=== PATIENT | male | born 1955 | race Caucasian/White ===

== ENCOUNTER 2017-01-08 07:07 | Inpatient (IN) | payer OTHER ==
--- NOTE | 2016-12-25 15:08 | DIAGNOSTIC IMAGING REPORT ---
CHEST 2 VIEWS ROUTINE CLINICAL HISTORY: Preoperative chest COMPARISON STUDY: No previous studies for comparison. FINDINGS: The cardiac and mediastinal contours are normal. There is no evidence of focal pulmonary consolidation. There is no evidence of failure. No pleural effusions are visualized.[ IMPRESSION: No active disease in the chest. Electronically signed by: Dudley Crespo M.D. 12/25/2016 3:05 PM Dictated Date/Time: 12/25/2016 3:04 PM
[2016-12-25 16:09] LABS: URINE APPEARANCE CLEAR (CLEAR); URINE BILIRUBIN NEG (NEG); URINE COLOR YELLOW; URINE NITRITE NEG (NEG); URINE SPECIFIC GRAVITY 1.015 (1.000-1.030); UROBILINOGEN NEG (NEG)
[2016-12-25 16:13] LABS: MANUAL MICROSCOPIC REQUIRED? NO; REVIEW REQ? NO
[2016-12-25 16:15] LABS: BASO % 0.2 %; BASO ABS # 0.01 K/uL (0-0.2); COMPLETE YES; EOS % 0.8 %; HEMATOCRIT 38.8 % (42-52); IG% 0.2 %; LYMPH % 15.8 %; LYMPH ABS # 0.95 K/uL (1.2-3.4); MEAN CELL VOLUME 102.6 fL (80-100); MEAN CORPUSCULAR HEMOGLOBIN 35.4 pg (25-34); MEAN CORPUSCULAR HGB CONC 34.5 g/dl (32-36); MONO % 5.3 %; NEUT % 77.7 %; PLATELET COUNT 109 K/uL (130-400); RED BLOOD COUNT 3.78 M/uL (4.7-6.1); WHITE BLOOD COUNT 6.02 K/uL (4.8-10.8)
[2016-12-25 17:15] LABS: BLOOD UREA NITROGEN 18 mg/dl (7-18); BUN/CREATININE RATIO 16.2 (10-20); CALCIUM 9.6 mg/dl (8.5-10.1); CARBON DIOXIDE 26 mmol/L (21-32); CHLORIDE 103 mmol/L (98-107); GLUCOSE 100 mg/dl (70-99); POTASSIUM 3.6 mmol/L (3.5-5.1); SODIUM 137 mmol/L (136-145)
[2016-12-27 10:21] VITALS: BMI 32.0
[~2017-01-08] VITALS: Ht 175.3 cm; Wt 100.0 kg
[2017-01-08] VITALS (8 sets, daily range): BP systolic 105–127; BP diastolic 64–79; PULSE 65–91; TEMP 36.4–36.9; O2SAT 97–100; Ht 175.3 cm; Wt 100.0 kg
[~2017-01-08 07:07] MED LIST: ASCA500 PO; CEFAZOLIN 2000 MG/60 ML D5W IV SCH; FOLI800T PO; FURO-85 PO; HYDR-4079 PO; L-ME1CAP3 PO; LACTATED RINGER'S 1000ML 1,000 ML IV SCH; LINE600T5 PO; LISI-787 PO; MULT-506 PO; NRN/600 PO; [UNRECOGNIZED DRUG - REMARK] SCH
[2017-01-08] MEDS ORDERED: FENTANYL CITRATE INJ 50 MCG/1 ML 2 ML VIAL ONE ×4 (09:57→12:51)
[2017-01-08] MEDS ORDERED: MIDAZOLAM HCL 1 MG/ML 2ML VIAL ONE (09:57)
--- NOTE | 2017-01-08 10:01 | History & Physical Bridge Note ---
H&P Re-Evaluation Bridge Note: I have examined the patient, reviewed the History & Physical and in the interval since the performance of the History & Physical I have noted the following changes of clinical significance: No changes noted
--- NOTE | 2017-01-08 10:02 | History and Physical ---
History & Physical Date January 08, 2017. History of Present Illness The patient is a 61 year old male with complaints of Past Medical/Surgical History back and leg pain Additional History Hepatic Disease: Yes Endocrine Disorder: No Kidney Disease: No Hypertension: No Heart Disease: Yes Bleeding Tendencies: No Infectious Diseases: No Allergies Coded Allergies: Penicillins (Verified Allergy, Mild, UNKNOWN, 12/27/16) Tramadol (Verified Allergy, Mild, LIP SWELLING, 12/27/16) Vancomycin (Verified Allergy, Mild, LIP SWELLING, 12/27/16) Home Medications Scheduled Ascorbic Acid (Vitamin C), 1 TAB PO QPM Folic Acid (Folic Acid), 1 TAB PO QAM Gabapentin (Neurontin), 600 MG PO TID L-Methylfolate W/ Algae-Vitami (Metanx), 1 CAP PO BID Linezolid (Zyvox), 600 MG PO Q12 Lisinopril/Hctz (Zestoretic 20MG/12.5MG), 2 TAB PO QAM Multivitamin (Multivitamin), 1 TAB PO QPM Scheduled PRN Furosemide (Lasix), 20 MG PO DAILY PRN for SWELLING Hydrocodone/Acetaminophen 10MG/325MG (Darrow 10MG/325MG), 1 TABS PO Q12 PRN for Pain Physical Examination Skin: warm/dry, no rash Eyes: normal inspection, EOMI, sclerae normal ENT: normal ENT inspection, pharynx normal Head: normocephalic, atraumatic Neck: supple, no adenopathy, trachea midline Respiratory/Chest: lungs clear, normal breath sounds, no respiratory distress Cardiovascular: regular rate, rhythm, no edema, no murmur Abdomen / GI: normal bowel sounds, non tender Back: normal inspection Extremities: normal inspection, normal range of motion Neurologic/Psych: no motor/sensory deficits, alert, normal reflexes, oriented x 3 Diagnosis lumbar stenosis Plan of Treatment decompression fusion L4-S1
[2017-01-08] MEDS ORDERED: CEFAZOLIN IV 2,000 MG/60 ML D5W IV ONE (10:25)
[2017-01-08] MEDS ORDERED: BACITRACIN 50000 UNIT VIAL ONE (10:26)
[2017-01-08] MEDS ORDERED: BUPIVACAINE/EPINEPHRINE 0.5% MPF 1:200,000 30 ML VIAL ONE (10:26)
[2017-01-08] MEDS ORDERED: SODIUM CHLORIDE 0.9% PF 50 ML VIAL ONE (10:26)
[2017-01-08] MEDS ORDERED: HYDROmorphone INJ 2 MG/ML SYR/VIAL ONE ×2 (11:06→12:58)
[2017-01-08] MEDS ORDERED: LABETALOL HCL IV 5 MG/ML 20ML IV PRN (11:30)
[2017-01-08] MEDS ORDERED: ATROPINE SULFATE 0.1 MG/ML 5ML SYR IV PRN (11:30)
[2017-01-08] MEDS ORDERED: MEPERIDINE HCL 25 MG/ML CARP IV PRN (11:30)
[2017-01-08] MEDS ORDERED: EpHEDrine SULFATE INJ 50 MG/ML AMP IV PRN (11:30)
[2017-01-08] MEDS ORDERED: ONDANSETRON INJ 2 MG/ML 2 ML VIAL IV PRN ×2 (11:30→13:00)
[2017-01-08] MEDS ORDERED: HYDROmorphone INJ 1 MG/ML SYR IV PRN (11:30)
[2017-01-08] MEDS ORDERED: ONDANSETRON INJ 2 MG/ML 2 ML VIAL ONE ×2 (11:46→13:00)
[2017-01-08] MEDS ORDERED: LIDOCAINE HCL 2% 2 ML VIAL (20MG/ML) ONE (11:46)
[2017-01-08] MEDS ORDERED: ROCURONIUM BROMIDE 10 MG/ML 5 ML VIAL ONE (11:46)
[2017-01-08] MEDS ORDERED: DEXAMETHASONE SOD INJ 4 MG/ML VIAL ONE (11:46)
[2017-01-08] MEDS ORDERED: PROPOFOL IV EMULSION 10 MG/ML 20 ML VIAL IV ONE (11:46)
[2017-01-08] MEDS ORDERED: FLOSEAL HEMOSTATIC MATRIX 10ML TOP ONE (12:44)
[2017-01-08] MEDS ORDERED: SODIUM CHLORIDE 0.9% 1000ML 1,000 ML IV SCH (12:49)
--- NOTE | 2017-01-08 12:49 | [facility] Post Operative Brief Note ---
Immediate Operative Summary Operative Date January 08, 2017. Pre-Operative Diagnosis Lumbar Stenosis, L4-S1 Post-Operative Diagnosis Same as preoperative Procedure(s) Performed decompression Surgeon Dr. Ciro Galindo Brazing Machine Operator Helper Surgeon(s) Elizabeth Canseco PA-C Estimated Blood Loss 300 Findings stenosis Specimens None per surgeon
[2017-01-08] MEDS ORDERED: PROMETHAZINE HCL INJ 12.5 MG in SODIUM CHLORIDE 0.9% 50ML 50 ML IV PRN (13:00)
[2017-01-08] MEDS ORDERED: DO NOT ADMINISTER PNEUMOCOCCAL VACCINE PRN ×2 (13:00)
[2017-01-08] MEDS ORDERED: ACETAMINOPHEN 500 MG TAB PO PRN (13:00)
[2017-01-08] MEDS ORDERED: DO NOT ADMINISTER FLU VACCINE PRN ×3 (13:00)
[2017-01-08] MEDS ORDERED: ALUMINUM/MAGNESIUM SUSP 30 ML UDC PO PRN (13:00)
[2017-01-08] MEDS ORDERED: FAMOTIDINE 20 MG TAB PO PRN (13:00)
[2017-01-08] MEDS ORDERED: GLYCOPYRROLATE INJ 0.2 MG/ML VIAL ONE (13:00)
[2017-01-08] MEDS ORDERED: LORAZEPAM INJ 0.5 MG in SYRINGE 0 ML IV PRN (13:00)
[2017-01-08] MEDS ORDERED: NALOXONE HCL 0.4 MG/1 ML VIAL/CARP IV PRN ×2 (13:00)
[2017-01-08] MEDS ORDERED: BISACODYL 10 MG SUPP PR PRN (13:00)
[2017-01-08] MEDS ORDERED: MAGNESIUM HYDROXIDE SUSP 30 ML UDC PO PRN (13:00)
[2017-01-08] MEDS ORDERED: METOCLOPRAMIDE HCL INJ 5 MG/ML 2 ML VIAL IV PRN (13:00)
[2017-01-08] MEDS ORDERED: NEOSTIGMINE METHYLSULFATE 1 MG/ML 10ML VIAL ONE (13:00)
[2017-01-08] MEDS ORDERED: hydrOXYzine HCL 25 MG TAB PO PRN (13:00)
[2017-01-08] MEDS ORDERED: ACETAMINOPHEN IV 100 ML IV PRN (13:00)
[2017-01-08] MEDS ORDERED: FUROSEMIDE 20 MG TAB PO PRN (13:00)
[2017-01-08] MEDS ORDERED: SOD PHOSPHATE/SOD BIPHOSPHATE ENEMA 132 ML BTL PR PRN (13:00)
[2017-01-08] MEDS ORDERED: HYDROmorphone HCL 0.5MG/ML 50 ML CASSETTE ONE (13:09)
[2017-01-08] MEDS: FENTANYL CITRATE INJ 50 MCG/1 ML 2 ML VIAL IV PRN ×4 (13:25→13:40)
--- NOTE | 2017-01-08 13:36 | DIAGNOSTIC IMAGING REPORT ---
INTRAOPERATIVE LUMBAR SPINE 2 VIEWS CLINICAL HISTORY: L4-S1 DECOMPRESSION/FUSION/INTERBODY POSSIBLE ILIAC BOLTS COMPARISON STUDY: No previous studies for comparison. FINDINGS: 24 seconds of fluoroscopic time was utilized. 2 intraoperative fluoroscopic spot films were acquired. There are postsurgical changes of an L5-S1 discectomy and interbody fusion. There are pedicle screws with adjoining spinal rods at the L4, L5, and S1 levels. IMPRESSION: Postsurgical changes as described above. Electronically signed by: Dudley Crespo M.D. 01/08/2017 1:35 PM Dictated Date/Time: 01/08/2017 1:34 PM
--- NOTE | 2017-01-08 14:01 | OPERATIVE REPORT ---
DATE OF OPERATION: 01/08/2017 PREOPERATIVE DIAGNOSIS: Spinal stenosis, spondylolisthesis. POSTOPERATIVE DIAGNOSIS: Same. PROCEDURE PERFORMED: 1. Lumbar decompression, medial facetectomy, and foraminotomy L3-4, L4-5, L5-S1. 2. Posterior spinal fusion L4-L5, L5-S1. 3. Placement of posterior segmental instrumentation using Orthros rods and screws L4-5, L5-S1. 4. Interbody fusion L5-S1. 5. Placement of PEEK cage 10 x 22 mm at L5-S1. 6. Placement of locally harvested morcellized autograft in posterior gutters. 7. Placement of Infuse collagen sponge combined with Mastergraft in the posterior gutters and Trang bone grafting in interbody space. SURGEON: Dr. Ciro Galindo. CAN PATCHER: VINCENT Huber. Due to the complex nature of the procedure, the entire surgery was performed with the assistant financial accountant of VINCENT Huber. The hospital nursing assistant, under direct supervision, was involved in the actual performance of all aspects of the surgical procedure including hemostasis, tissue retraction and incision, instrument management, patient positioning, and wound closure. ANESTHESIA: General. DISPOSITION: The patient awakened and taken to PACU in stable condition. HISTORY OF PATIENT'S PROBLEMS: This is a 61-year-old male well known to me, presents with the above-mentioned diagnosis. After failing an extensive course of nonoperative care, elected to undergo the above-mentioned procedure. Risks, benefits, pros, cons, and alternatives were outlined in detail preoperatively. DESCRIPTION OF PROCEDURE: The patient was met with preoperatively, case discussed, and all questions were addressed. At that point, the patient was taken back to the operative suite, and after undergoing successful general intubation by the department of anesthesia, was placed in prone position on Trevor table atop Robert frame. All bony prominences were well padded and the eyes were inspected to ensure there was no external pressure placed upon them. At this point, lumbar spine was prepped and draped in normal sterile fashion. Sharp dissection with the assistance of Bovie cautery was performed down to and exposing the lamina and transverse processes of L4, L5 and sacral ala bilaterally. From a caudal to cephalad fashion, complete laminectomy of L5, L4, partial laminectomy of L3 was performed including medial facetectomies and foraminotomies. Pedicle screws were then placed in L4, L5 and S1 levels bilaterally with assistance of fluoroscopy and appropriate size kristian provisionally placed. Through a transforaminal approach on the right, a complete discectomy of L5-S1 was performed, endplates curetted to subcortical bleeding bone, and a 10 x 22 mm PEEK cage filled with Trang bone grafting tapped into position. Appropriate size rods were then locked into position bilaterally and transverse processes of L4, L5 and sacral ala burred to subcortical bleeding bone. Infuse collagen sponge combined with Mastergraft and locally harvested morcellized autograft was placed in the posterior gutters. A crosslink locked into position, 7 flat LONNIE drain inserted. Incision was closed with 1-0 Vicryl in the fascia, 2-0 Vicryl subcutaneously, 4-0 Monocryl for final skin closure. Steri-Strips and sterile dressing placed. The patient was awakened and taken to PACU in stable condition. I attest to the content of the Intraoperative Record and any orders documented therein. Any exceptio ns are noted below.
[2017-01-08] MEDS: HYDROmorphone HCL 0.5MG/ML 50 ML CASSETTE IV PRN ×2 (14:16→22:57)
--- NOTE | 2017-01-08 14:20 | Anesthesiology Progress Note ---
Anesthesia Post Op Note Date & Time January 08, 2017 at 14:20 Vital Signs Pain Intensity: 4 Vital Signs Past 12 Hours Date Time Temp Pulse Resp B/P Pulse Ox O2 Delivery O2 Flow Rate FiO2 01/08/17 13:55 37.4 82 12 101/61 100 Nasal Cannula 4 01/08/17 13:45 84 12 113/60 99 Nasal Cannula 4 01/08/17 13:35 83 12 118/62 99 Nasal Cannula 4 01/08/17 13:25 82 12 122/61 100 Mask 10 01/08/17 13:15 92 12 123/73 100 Mask 10 01/08/17 13:09 36.7 95 12 138/68 99 Mask 10 01/08/17 07:35 36.9 91 16 126/79 99 Room Air Notes Mental Status: alert / awake / arousable, participated in evaluation Pt Amnestic to Procedure: Yes Nausea / Vomiting: adequately controlled Pain: adequately controlled Airway Patency, RR, SpO2: stable & adequate BP & HR: stable & adequate Hydration State: stable & adequate Anesthetic Complications: no major complications apparent
[2017-01-08] MEDS: LACTATED RINGER'S 1000ML 1,000 ML IV SCH ×2 (15:22→19:28)
[2017-01-08] MEDS: GABAPENTIN 600 MG TAB PO SCH (15:43)
[2017-01-08] MEDS: NICOTINE 21 MG/24 HR TDSY TD SCH (15:43)
[2017-01-08] MEDS ORDERED: LORAZEPAM 1 MG TAB PO SCH (18:00)
[2017-01-08] MEDS: CLINDAMYCIN IV 600 MG in DEXTROSE 5% ADD-VANTAGE 50ML 50 ML IV SCH (18:15)
[2017-01-08] MEDS: DEXAMETHASONE INJ 6 MG in SYRINGE 0 ML IV SCH (19:28)
[2017-01-08] MEDS ORDERED: LORAZEPAM 1 MG TAB PO PRN (20:00)
--- NOTE | 2017-01-08 20:11 | Medical Consult ---
Consultation Date of Consultation: January 08, 2017 ~ 17:50 . Attending Physician: Ciro Galindo D.O. . Reason for Consultation: medical management . History of Present Illness 61 YO male from [place], [place]. History of hypertension, diet-controlled DM, and other problems noted below. Lumbar decompression and fusion performed today under general anesthesia. Doing well postoperatively. No chest pain. No cough or dyspnea. No nausea or vomiting. Postop pain well-controlled. . Past Medical/Surgical History Chronic Medical Problems: (1) Diabetes mellitus type 2, diet controlled Status: Chronic (2) History of bladder cancer Status: Chronic (3) Hypertension Status: Chronic Surgical Problems: (1) History of total cystectomy Permanent Comment: bladder Ca Status: Chronic (2) Status post ileal conduit Status: Chronic . Social History Smoking Status: Current Every Day Smoker (1 PPD) Alcohol Use: heavy (8 drinks a day) Occupation Status: disabled Allergies Coded Allergies: Penicillins (Verified Allergy, Mild, UNKNOWN, 12/27/16) Tramadol (Verified Allergy, Mild, LIP SWELLING, 12/27/16) Vancomycin (Verified Allergy, Mild, LIP SWELLING, 12/27/16) Current Inpatient Medications Current Inpatient Medications Medications (Trade) Dose Ordered Sig/Harinder Route Start Time Stop Time Status Last Admin Dose Admin Lactated Ringer's 1,000 ml @ 15 mls/hr Q24H IV 01/08/17 06:00 01/09/17 05:59 Clindamycin Phosphate 600 mg/ Dextrose 54 ml @ 100 mls/hr Q8H IV 01/08/17 18:00 01/09/17 02:33 01/08/17 18:15 100 MLS/HR Dexamethasone Sodium Phosphate 6 mg/Syringe 1.5 ml @ 1 mls/min Q8H IV 01/08/17 20:00 01/09/17 12:02 01/08/17 19:28 1 MLS/MIN Promethazine HCl/ Sodium Chloride (Phenergan Inj/ Nss 50ml) 50.5 ml @ 202 mls/hr Q6H PRN IV 01/08/17 13:00 02/07/17 12:59 Ondansetron HCl (Zofran Inj) 4 mg Q6H PRN IV 01/08/17 13:00 02/07/17 12:59 Metoclopramide HCl (Reglan Inj) 10 mg Q6H PRN IV 01/08/17 13:00 02/07/17 12:59 Lorazepam 0.5 mg 0.5 mg Q8H PRN PO 01/08/17 13:00 02/07/17 12:59 Lorazepam/Syringe (Ativan Inj/ Syringe) 0.25 ml @ 1 mls/min Q8H PRN IV 01/08/17 13:00 02/07/17 12:59 Pneumococcal Polysaccharide Vaccine 1 ea PRN PRN N/A 01/08/17 13:00 02/07/17 12:59 Influenza Virus Vacc Triv Types A&B 1 ea PRN PRN N/A 01/08/17 13:00 02/07/17 12:59 Polyethylene (Miralax Powder Packet) 17 gm Q6 PO 01/10/17 06:00 02/09/17 05:59 Bisacodyl (Dulcolax Supp) 10 mg DAILY PRN MA 01/08/17 13:00 02/07/17 12:59 Magnesium Hydroxide (Milk Of Magnesia Susp) 30 ml DAILY PRN PO 01/08/17 13:00 02/07/17 12:59 Hydromorphone HCl (Dilaudid Inj) 0.5-1mg prn moder... Q3H PRN IV 01/09/17 06:01 01/23/17 06:00 Oxycodone HCl 5-10mg prn moderate to sev... Q4H PRN PO 01/09/17 06:00 01/23/17 05:59 Lactated Ringer's (Lr 1000ml) 1,000 ml @ 150 mls/hr Q6H40M IV 01/08/17 12:49 02/07/17 12:48 01/08/17 19:28 150 MLS/HR Acetaminophen 1000 mg 1,000 mg Q8H PRN PO 01/08/17 13:00 02/07/17 12:59 Acetaminophen (Ofirmev Iv) 100 ml @ 400 mls/hr Q8H PRN IV 01/08/17 13:00 02/07/17 12:59 Naloxone HCl (Narcan Inj) 0.1 mg Q5M PRN IV 01/08/17 13:00 02/07/17 12:59 Senna/Docusate Sodium (Senokot S Tab) 2 tab HS PO 01/08/17 21:00 02/07/17 20:59 Sodium Biphosphate/ Sodium Phosphate (Fleet Enema) 132 ml ONE PRN MA 01/08/17 13:00 02/07/17 12:59 Hydroxyzine HCl (Vistaril Tab) 25 mg Q8H PRN PO 01/08/17 13:00 02/07/17 12:59 Al Hydroxide/Mg Hydroxide (Maalox Susp) 30 ml Q6H PRN PO 01/08/17 13:00 02/07/17 12:59 Famotidine (Pepcid Tab) 20 mg Q12 PRN PO 01/08/17 13:00 02/07/17 12:59 Diphenhydramine HCl (Benadryl Cap) 25 mg Q6H PRN PO 01/08/17 13:00 02/07/17 12:59 Miscellaneous Information (Discontinue SPEEDER OPERATOR) 1 ea TODAY@0600 N/A 01/09/17 06:00 01/09/17 06:01 Naloxone HCl (Narcan Inj) 0.1 mg Q5M PRN IV 01/08/17 13:00 01/09/17 06:00 Hydromorphone HCl 25 mg 25 mg PRN PRN IV 01/08/17 13:00 01/09/17 06:00 01/08/17 14:16 25 MG Sodium Chloride (Nss 1000ml) 1,000 ml @ 15 mls/hr Q24H IV 01/08/17 12:49 01/09/17 06:00 Furosemide (Lasix Tab) 20 mg DAILY PRN PO 01/08/17 13:00 02/07/17 12:59 Gabapentin (Neurontin Tab) 600 mg TID PO 01/08/17 14:00 02/07/17 13:59 01/08/17 15:43 600 MG HCTZ/Lisinopril (Prinzide 20-12.5MG Tab) 2 tab QAM PO 01/09/17 09:00 02/08/17 08:59 Nicotine (Nicoderm Cq 21MG Patch) 1 patch QAM TD 01/09/17 09:00 02/08/17 08:59 01/08/17 15:43 1 PATCH Miscellaneous (Remove Nicoderm Patch) 1 ea HS N/A 01/08/17 21:00 02/07/17 20:59 Lorazepam (Ativan Tab) 1 mg Q6 PO 01/08/17 18:00 02/07/17 17:59 01/08/17 18:13 1 MG Review of Systems Constitutional: No fever, No weight loss Respiratory: No cough, No shortness of breath Cardiovascular: No chest pain Abdomen: No GI bleeding, No diarrhea, No nausea, No vomiting Genitourinary - Male: No hematuria Hematologic / Lymphatic: No abnormal bleeding/bruising Physical Exam Date Time Temp Pulse Resp B/P Pulse Ox O2 Delivery O2 Flow Rate FiO2 01/08/17 17:15 36.4 79 18 112/72 98 Room Air 01/08/17 16:15 36.5 67 16 105/64 100 Nasal Cannula 4.0 01/08/17 15:19 36.6 73 16 105/72 99 Nasal Cannula 4.0 01/08/17 14:45 36.6 70 16 111/69 100 Nasal Cannula 4.0 01/08/17 14:15 36.7 79 16 109/67 99 Nasal Cannula 4.0 01/08/17 14:15 99 Nasal Cannula 4.0 01/08/17 14:15 99 Nasal Cannula 4.0 01/08/17 13:55 37.4 82 12 101/61 100 Nasal Cannula 4 01/08/17 13:45 84 12 113/60 99 Nasal Cannula 4 01/08/17 13:35 83 12 118/62 99 Nasal Cannula 4 01/08/17 13:25 82 12 122/61 100 Mask 10 01/08/17 13:15 92 12 123/73 100 Mask 10 01/08/17 13:09 36.7 95 12 138/68 99 Mask 10 01/08/17 07:35 36.9 91 16 126/79 99 Room Air General Appearance: WD/WN, no apparent distress Head: normocephalic, atraumatic Eyes: normal inspection, PERRL, EOMI, sclerae normal Neck: supple, no adenopathy, thyroid normal, no JVD, trachea midline Respiratory/Chest: lungs clear, normal breath sounds, no respiratory distress Cardiovascular: regular rate, rhythm, no edema, no gallop, no JVD, no murmur Abdomen/GI: normal bowel sounds, non tender, soft, no organomegaly, + pertinent finding (ileostomy RLQ) Back: + pertinent finding (bandaged) Extremities/Musculoskelatal: normal inspection, no calf tenderness, + pertinent finding (TEDS and SCD's applied) 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 (PERRL, EOMI, no facial palsy), + pertinent finding (motor strength lower extremities grossly intact, but exam limited due to postoperative status) Skin: normal color, warm/dry Laboratory Results Preop testing: Item Value Date Time Hemoglobin 13.4 g/dL L 12/25/16 1443 White Blood Count 6.02 K/uL 12/25/16 1443 Platelet Count 109 K/uL L 12/25/16 1443 Sodium Level 137 mmol/L 12/25/16 1443 Potassium Level 3.6 mmol/L 12/25/16 1443 Chloride Level 103 mmol/L 12/25/16 1443 Carbon Dioxide Level 26 mmol/L 12/25/16 1443 Blood Urea Nitrogen 18 mg/dl 12/25/16 1443 Creatinine 1.10 mg/dl 12/25/16 1443 Random Glucose 100 mg/dl H 12/25/16 1443 Calcium Level 9.6 mg/dl 12/25/16 1443 EKG performed 12/25/[address] at 105 / minute, left axis deviation, poor R-wave progression. CHEST 2 VIEWS ROUTINE IMPRESSION: No active disease in the chest. Electronically signed by: Dudley Crespo M.D. 12/25/2016 3:05 PM . Last 24 Hours Test 01/08/17 13:24 Bedside Glucose 128 mg/dl Assessment & Plan S/P LUMBAR DECOMPRESSION / FUSION POD # 0. Doing well postoperatively. HYPERTENSION BP 112/72 postop. Continue lisinopril + HCTZ postop with hold parameters. DM TYPE II Diet-controlled. Blood sugar 128 this afternoon. Blood sugars may run high due to surgery and dexamethasone. Insulin coverage PRN. ALCOHOL CONSUMPTION Consumes 8 alcoholic beverages a day. At risk for alcohol withdrawal. Will use alcohol withdrawal protocol. Patient already takes gabapentin 600 mg TID. Will give additional doses for first 36 hours, then resume 600mg TID. Lorazepam PRN per protocol. Thiamine, folate, MVI. SMOKING Smokes 1 PPD. Nicotine patch ordered. VTE PROPHYLAXIS Per Orthopedics protocol. Thank you for this consultation. We will follow the patient with you during their hospital stay. will be rounding for our service starting 01/09. You can reach a member of the [facility]ist Team 26/03 via pager @ [phone]. You can reach me via cell @ [phone]. .
[2017-01-08] MEDS ORDERED: GLUCOSE 40% GEL 15 GM TUBE PO PRN (20:45)
[2017-01-08] MEDS ORDERED: GLUCAGON FOR INJ 1 MG VIAL SQ PRN (20:45)
[2017-01-08] MEDS ORDERED: DEXTROSE 50% 50 ML SYR IV PRN (20:45)
[2017-01-08] MEDS ORDERED: GLUCOSE 10 TABS/TUBE PO PRN (20:45)
[2017-01-08] MEDS: INSULIN ASPART 100 UNITS/ML 3 ML PEN SC SCH (20:53)
[2017-01-08] MEDS: DOCUSATE SODIUM/SENNA 50/8.6MG TAB PO SCH (20:53)
[2017-01-08] MEDS ORDERED: THIAMINE HCL INJ 100 MG in SYRINGE 9 ML IV ONE (21:00)
[2017-01-08] MEDS ORDERED: GABAPENTIN 600 MG TAB PO ONE (21:00)
[2017-01-09] VITALS (16 sets, daily range): BP systolic 111–163; BP diastolic 62–88; PULSE 63–88; TEMP 36.6–37.2; O2SAT 96–99
[2017-01-09] MEDS: CLINDAMYCIN IV 600 MG in DEXTROSE 5% ADD-VANTAGE 50ML 50 ML IV SCH (01:57)
[2017-01-09] MEDS: LACTATED RINGER'S 1000ML 1,000 ML IV SCH (01:57)
[2017-01-09] MEDS: DEXAMETHASONE INJ 6 MG in SYRINGE 0 ML IV SCH ×2 (04:04→12:22)
[2017-01-09] MEDS ORDERED: DC PCA SCH (06:00)
[2017-01-09] MEDS ORDERED: HYDROmorphone INJ 1 MG/ML SYR IV PRN (06:01)
[2017-01-09 06:11] LABS: HEMATOCRIT 23.5 % (42-52); MEAN CELL VOLUME 101.3 fL (80-100); MEAN CORPUSCULAR HEMOGLOBIN 35.3 pg (25-34); MEAN CORPUSCULAR HGB CONC 34.9 g/dl (32-36); RED BLOOD COUNT 2.32 M/uL (4.7-6.1); WHITE BLOOD COUNT 5.84 K/uL (4.8-10.8)
[2017-01-09] MEDS ORDERED: NURSING VERBAL MED ORDER ONE (06:15)
[2017-01-09 06:41] LABS: CALCIUM 8.6 mg/dl (8.5-10.1); CREATININE 0.92 mg/dl (0.60-1.40); POTASSIUM 4.3 mmol/L (3.5-5.1)
[2017-01-09 06:48] LABS: BASO % 0.2 %; BASO ABS # 0.01 K/uL (0-0.2); COMPLETE YES; EOS % 0.3 %; IG% 0.7 %; LYMPH % 8.4 %; LYMPH ABS # 0.49 K/uL (1.2-3.4); MEAN PLATELET VOLUME 11.4 fL (7.4-10.4); MONO % 4.1 %; NEUT % 86.3 %; PLATELET COUNT 50 K/uL (130-400); PLT ESTIMATE DECREASED
--- NOTE | 2017-01-09 08:10 | Anesthesiology Progress Note ---
Anesthesia Post Op Note Date & Time January 09, 2017 at 08:10 Vital Signs Pain Intensity: 3.0 Vital Signs Past 12 Hours Date Time Temp Pulse Resp B/P Pulse Ox O2 Delivery O2 Flow Rate FiO2 01/09/17 07:47 96 Room Air 01/09/17 07:42 36.6 71 13 157/79 96 Room Air 01/09/17 07:00 Room Air 01/09/17 03:20 36.9 74 20 120/76 97 Room Air 01/08/17 23:34 Room Air 01/08/17 23:10 36.7 65 18 127/78 97 Room Air Notes Mental Status: alert / awake / arousable, participated in evaluation Pt Amnestic to Procedure: Yes Nausea / Vomiting: adequately controlled Pain: adequately controlled Airway Patency, RR, SpO2: stable & adequate BP & HR: stable & adequate Hydration State: stable & adequate Anesthetic Complications: no major complications apparent
--- NOTE | 2017-01-09 08:16 | PROGRESS NOTE ---
DATE: 01/09/2017 Postop day 1. Back pain controlled. Leg pain markedly improved. Vital signs stable. T-max 36.9. LONNIE drained 195 mL over the last shift. Hematocrit this a.m. is 23.5. PHYSICAL EXAMINATION: He is sitting up in bed, has good strength to testing, appears relatively comfortable. ASSESSMENT: Status post lumbar decompression and fusion. PLAN: At this time, I did explain to the patient that his blood count is quite low and his LONNIE drain is still significant. Subsequently would like to transfuse him 2 units of blood today and undergo relatively light activity, but increase physical therapy as tolerated. We will consider home health versus rehab over the course of the next few days pending his results with therapy.
[2017-01-09] MEDS: THIAMINE HCL 100 MG TAB PO SCH (08:27)
[2017-01-09] MEDS: GABAPENTIN 600 MG TAB PO SCH ×4 (08:27→21:00)
[2017-01-09] MEDS: MULTIVITAMIN TAB PO SCH (08:27)
[2017-01-09] MEDS: LISINOPRIL/HCTZ 20/12.5MG TAB PO SCH (08:28)
[2017-01-09] MEDS: NICOTINE 21 MG/24 HR TDSY TD SCH (08:28)
[2017-01-09] MEDS: INSULIN ASPART 100 UNITS/ML 3 ML PEN SC SCH ×4 (08:34→21:02)
--- NOTE | 2017-01-09 08:45 | Clinical Documentation Query ---
SHANTAL Westbrook : CLINICAL DOCUMENTATION QUERY Patient is a 61 year old male who underwent elective lumbosacral decompression and posterior instrumented spinal fusion on 01/08. EBL for the procedure was 300 ml's with subsequently documented losses to date totaling an additional 925 ml's. Preoperative hemoglobin and hematocrit were 13.4 g/dl and 38.8%. POD #1, repeat values are 8.2 g/dl and 23.5%. He is being transfused 2 units of PRBC's and monitored with serial hematology. In your clinical opinion is this patient being managed for: ( ) Acute blood loss anemia ( ) Other explanation of clinical findings (Please Explain) ( ) Unable to determine (Please Define) ( ) Need to Discuss ( ) Not Agree The medical record reflects the following clinical findings, treatment, and risk factors. Clinical Indicators: As above Treatment:He is being transfused 2 units of PRBC's and monitored with serial hematology. Risk Factors: Acute perioperative blood losses Please clarify and document your clinical opinion in the progress notes and discharge summary. Terms such as "probable", "suspected", "likely", "questionable", "possible", or "still to be ruled out" are acceptable. IF IN AGREEMENT, YOU MUST DOCUMENT ABOVE DIAGNOSTIC STATEMENT IN DAILY PROGRESS NOTES AND DISCHARGE SUMMARY. This document is not part of the patient's record. Thank You, Ming Michaud RN [phone]
--- NOTE | 2017-01-09 12:08 | Progress Note ---
Internal Med Progress Note Date of Service: January 09, 2017. Provider Documentation: SUBJECTIVE: Seen and examined at bedside. States back pain is controlled. Currently getting blood transfusion. Denies any chest pain, SOB, fever, chills, abd pain. +Flatus no BM yet. OBJECTIVE: Vital Signs-as noted below Physical Exam: General Appearance:Moderately built and nourished, no apparent distress Head: normocephalic, Atraumatic Eyes: normal inspection, EOMI, PERRL Neck: supple, Trachea midline Respiratory/Chest: Normal breath sounds, CTA Cardiovascular: S1, S2, No murmur Abdomen/GI:Soft, Non tender, Bowel sounds present Extremities/Musculoskelatal:normal inspection, Trace edema Neurologic/Psych:AAOX3, grossly no focal neurological deficits Skin: normal color, warm, Surgical site on back in bandage, +Drain Lab data as noted below. ASSESSMENT & PLAN: S/P LUMBAR DECOMPRESSION / FUSION POD # 1 Back pain controlled PT/OT Surgery following Pain control Bowel regimen ANEMIA: Postoperative 2 units PRBC transfusion today Monitor Hb HYPERTENSION Stable Continue lisinopril, HCTZ DM II Diet-controlled. Blood sugars run high due likely secondary to surgery and dexamethasone. ISS, diabetic diet ALCOHOL CONSUMPTION Consumes 8 alcoholic beverages a day. Monitor for alcohol withdrawal. Alcohol withdrawal protocol. Patient takes gabapentin 600 mg TID at home Plan to resume to home dose of gabapentin after first 36 hours Lorazepam PRN Continue Thiamine, folate, MVI. Tobacco Use Nicotine patch DVT Px: Per Orthopedics team Vital Signs: Date Time Temp Pulse Resp B/P Pulse Ox O2 Delivery O2 Flow Rate FiO2 01/09/17 11:45 36.7 77 16 127/73 98 01/09/17 11:14 36.7 74 18 120/67 01/09/17 11:01 36.6 81 18 123/75 97 01/09/17 09:58 79 135/77 01/09/17 09:40 36.9 86 18 148/88 96 01/09/17 09:10 37.2 88 17 126/62 97 01/09/17 09:00 37.2 86 18 132/76 97 01/09/17 08:55 37.2 86 18 132/76 97 01/09/17 08:39 36.8 83 18 117/70 96 01/09/17 07:47 96 Room Air 01/09/17 07:42 36.6 71 13 157/79 96 Room Air 01/09/17 07:00 Room Air 01/09/17 03:20 36.9 74 20 120/76 97 Room Air 01/08/17 23:34 Room Air 01/08/17 23:10 36.7 65 18 127/78 97 Room Air 01/08/17 19:45 36.4 66 18 113/73 99 Room Air 01/08/17 17:15 36.4 79 18 112/72 98 Room Air 01/08/17 16:15 36.5 67 16 105/64 100 Nasal Cannula 4.0 01/08/17 15:19 36.6 73 16 105/72 99 Nasal Cannula 4.0 01/08/17 14:45 36.6 70 16 111/69 100 Nasal Cannula 4.0 01/08/17 14:15 36.7 79 16 109/67 99 Nasal Cannula 4.0 01/08/17 14:15 99 Nasal Cannula 4.0 01/08/17 14:15 99 Nasal Cannula 4.0 01/08/17 13:55 37.4 82 12 101/61 100 Nasal Cannula 4 01/08/17 13:45 84 12 113/60 99 Nasal Cannula 4 01/08/17 13:35 83 12 118/62 99 Nasal Cannula 4 01/08/17 13:25 82 12 122/61 100 Mask 10 01/08/17 13:15 92 12 123/73 100 Mask 10 01/08/17 13:09 36.7 95 12 138/68 99 Mask 10 Lab Results: Results Past 24 Hours Test 01/08/17 13:24 01/08/17 20:46 01/09/17 05:30 01/09/17 05:36 Range/Units Bedside Glucose 128 123 70-99 mg/dl White Blood Count 5.84 4.8-10.8 K/uL Red Blood Count 2.32 4.7-6.1 M/uL Hemoglobin 8.2 14.0-18.0 g/dL Hematocrit 23.5 42-52 % Mean Corpuscular Volume 101.3 80-100 fL Mean Corpuscular Hemoglobin 35.3 25-34 pg Mean Corpuscular Hemoglobin Concent 34.9 32-36 g/dl Platelet Count 50 130-400 K/uL Mean Platelet Volume 11.4 7.4-10.4 fL Neutrophils (%) (Auto) 86.3 % Lymphocytes (%) (Auto) 8.4 % Monocytes (%) (Auto) 4.1 % Eosinophils (%) (Auto) 0.3 % Basophils (%) (Auto) 0.2 % Neutrophils # (Auto) 5.04 1.4-6.5 K/uL Lymphocytes # (Auto) 0.49 1.2-3.4 K/uL Monocytes # (Auto) 0.24 0.11-0.59 K/uL Eosinophils # (Auto) 0.02 0-0.5 K/uL Basophils # (Auto) 0.01 0-0.2 K/uL RDW Standard Deviation 46.7 36.4-46.3 fL RDW Coefficient of Variation 12.8 11.5-14.5 % Immature Granulocyte % (Auto) 0.7 % Immature Granulocyte # (Auto) 0.04 0.00-0.02 K/uL Nucleated RBC Absolute Count (auto) 0.07 0-0 K/uL Nucleated Red Blood Cells % 1.3 % Platelet Estimate DECREASED Red Blood Cell Morphology Unremarkable Sodium Level 137 136-145 mmol/L Potassium Level 4.3 3.5-5.1 mmol/L Chloride Level 102 98-107 mmol/L Carbon Dioxide Level 29 21-32 mmol/L Anion Gap 6.0 3-11 mmol/L Blood Urea Nitrogen 19 7-18 mg/dl Creatinine 0.92 0.60-1.40 mg/dl Est Creatinine Clear Calc Drug Dose 97.1 ml/min Estimated GFR () 102.9 Estimated GFR (Non- 88.8 BUN/Creatinine Ratio 21.0 10-20 Random Glucose 141 70-99 mg/dl Calcium Level 8.6 8.5-10.1 mg/dl Test 01/09/17 07:54 01/09/17 11:52 Range/Units Bedside Glucose 176 229 70-99 mg/dl
[2017-01-09] MEDS: OXYCODONE HCL IR 5 MG TAB (IMMEDIATE RELEASE) PO PRN ×2 (13:23→18:17)
[2017-01-09] MEDS: DOCUSATE SODIUM/SENNA 50/8.6MG TAB PO SCH (21:41)
[2017-01-09] MEDS: LORAZEPAM 0.5 MG TAB PO PRN (21:41)
[2017-01-10] MEDS: OXYCODONE HCL IR 5 MG TAB (IMMEDIATE RELEASE) PO PRN ×4 (00:33→20:06)
[2017-01-10 03:30] VITALS: BP 104/62; PULSE 74; TEMP 36.6; O2SAT 96
[2017-01-10 06:00] VITALS: BP 121/74; PULSE 75; TEMP 36.9; O2SAT 96
[2017-01-10] MEDS: POLYETHYLENE (MIRALAX) 17 GM PACK PO SCH ×4 (06:04→23:33)
[2017-01-10 06:20] LABS: HEMATOCRIT 25.9 % (42-52)
[2017-01-10 06:58] LABS: BUN/CREATININE RATIO 15.7 (10-20); CALCIUM 8.8 mg/dl (8.5-10.1); CREATININE 0.88 mg/dl (0.60-1.40); POTASSIUM 3.8 mmol/L (3.5-5.1)
[2017-01-10] MEDS: NICOTINE 21 MG/24 HR TDSY TD SCH (07:22)
[2017-01-10] MEDS: THIAMINE HCL 100 MG TAB PO SCH (07:23)
[2017-01-10] MEDS: LORAZEPAM 0.5 MG TAB PO PRN ×2 (07:23→23:35)
[2017-01-10] MEDS: LISINOPRIL/HCTZ 20/12.5MG TAB PO SCH (07:23)
[2017-01-10] MEDS: GABAPENTIN 600 MG TAB PO SCH ×4 (07:23→21:32)
[2017-01-10] MEDS: MULTIVITAMIN TAB PO SCH (07:23)
[2017-01-10] MEDS: INSULIN ASPART 100 UNITS/ML 3 ML PEN SC SCH ×4 (07:49→21:00)
[2017-01-10] MEDS ORDERED: NURSING VERBAL MED ORDER ONE (10:45)
[2017-01-10 11:15] VITALS: BP 143/76; PULSE 93; TEMP 36.9; O2SAT 98
[2017-01-10] MEDS ORDERED: RXC5 PO (11:44)
--- NOTE | 2017-01-10 11:45 | Discharge Instructions ---
Discharge Instructions Date of Service January 10, 2017. Admission Reason for Admission: Lumbar Spinal Stenosis Discharge Discharge Diagnosis / Problem: stenosis Discharge Goals Goal(s): Improve function Activity Recommendations Activity Limitations: per Instructions/Follow-up section . Instructions / Follow-Up Instructions / Follow-Up ACTIVITY RECOMMENDATIONS: SELF CARE INSTRUCTIONS AFTER THORACIC/LUMBAR FUSIONS 1. You may walk to your tolerance. It is good exercise for your legs and back. Expect some back and intermittent leg aches and pains. 2. You may perform "counter-top" level activities (make a sandwich, mich with a project, etc.). 3. No bending or lifting of more than 10 pounds or back twisting of any nature (roll like a log when turning in bed). 4. You may ride in a car for 20-30 minutes at a time. No driving until after your first visit with your doctor. 5. Frequent changes of position and restricting sitting to 30 minutes at a time will help limit the amount of back spasms and stiffness you may experience. 6. You may discontinue the use of ambulatory aids (cane, crutches, etc.) once your strength and confidence allow. 7. You may diesel engine mechanic the shower and let water strike your incision when you arrive home at least once daily. Do not take a tub bath, sit in a hot tub or go into a swimming pool until after your first recheck in the office. SPECIAL CARE INSTRUCTIONS: VERY IMPORTANT TO READ AND REVIEW A. Your surgical incision has been closed with a cosmetic suture under the skin that will dissolve in about 6 weeks. In 14 days, you can use a pair of clean scissors and cut the suture that is left outside of the skin at the ends of your incision. 1. The small skin tapes can be removed 7 days after surgery if they have not fallen off by that point. 2. You may keep the wound open to air as much as possible to promote healing after post-op day number 5 unless told otherwise by your doctor. 3. If you think the wound looks like it is becoming infected (redness or worsening drainage) and/or you are experiencing fever, chill or worsening back pain and muscle spasms, contact the office so that we may evaluate you as soon as possible. B. Complications are uncommon, but please contact us if you have any signs or symptoms of: 1. wound infection (fever higher than 102.5 degrees F, redness, separation of wound, drainage, or increasing pain from the incision) 2. blood clots in legs (pain, swelling, redness and warmth in legs) 3. urinary tract infection (fever higher than 102.5 degrees F, burning upon urination or increased frequency of urination) 4. nerve problems (inability to walk on your toes or heels, numbness, loss of bowel or bladder control) 5. any other symptoms that concern you C. Please call the office at if you have any concerns or questions about your operation or recovery. D. No smoking! Smoking drastically decreases the chance of a solid fusion. E. Do not take any anti-inflammatory medications (Indocin, Advil, Motrin, Aspirin, Naprosyn, etc.) as these may inhibit the chance of a solid fusion. Tylenol is okay to take for pain. MANAGING PAIN AFTER SPINAL SURGERY 1. Narcotic medication is intended for short-term use and will be provided for surgical pain. Surgical pain usually lasts for a period of 4-6 weeks. Narcotic medication includes Percocet, Vicodin, Darvocet, Tylenol #3 or Lortab. 2. Longer-term pain is more appropriately treated with non-narcotic medication such as Tylenol ES. 3. Muscle spasm is not appropriately treated with narcotics. Muscle relaxers such as Soma, Flexeril or Skelaxin can be used along with Tylenol ES. 4. Remember that we all live with some "aches and pains". This is not unusual or uncommon after an injury or as we get older. a. Back pain is expected and may include muscle spasms for 4 to 6 weeks after surgery. The pain should gradually improve. If the pain worsens for no apparent reason, please contact the office. b. Intermittent leg pain may also be experienced and should not be concerned about unless it worsens for no apparent reason. If so, please contact the office. 5. We will provide appropriate medication within the normal guidelines of their prescribed use. We will also be very cautious and aware of potential abuse and extended duration of patients' medication needs. a. Pain medications are for your comfort and to assist with sleep and rest so that the tissue can heal. They are not provided in order to return to normal activity and should not be used through the day. To do so or worsening pain at night can result from ongoing tissue damage and development of tolerance to the prescribed medicine. 6. Please allow 2-3 days to process refills. Prescriptions will not be mailed but must be picked up at the office. FOLLOW UP VISIT: Keep your scheduled follow-up appointment. Any questions, please call the office at . Current Hospital Diet Patient's current hospital diet: Diabetes Type 2 Diet Discharge Diet Recommended Diet: Regular Diet Procedures Procedures Performed: decompression Pending Studies Studies pending at discharge: no Medical Emergencies . Who to Call and When: Medical Emergencies: If at any time you feel your situation is an emergency, please call 911 immediately. . Non-Emergent Contact Non-Emergency issues call your: Primary Care Provider . "Provider Documentation" section prepared by Ciro Galindo. . VTE Core Measure Inpt VTE Proph given/why not?: Delia Silva, SCD's
[2017-01-10 13:11] VITALS: BP 122/72; PULSE 89; TEMP 36.5; O2SAT 100
[2017-01-10 15:50] VITALS: BP 125/76; PULSE 92; TEMP 37.1; O2SAT 97
--- NOTE | 2017-01-10 15:55 | Progress Note ---
Internal Med Progress Note Date of Service: January 10, 2017. Provider Documentation: SUBJECTIVE: Seen and examined at bedside. States having back pain with ambulation. Denies any chest pain, SOB, fever, chills, abd pain. +Flatus no BM yet. OBJECTIVE: Vital Signs-as noted below Physical Exam: General Appearance:Moderately built and nourished, no apparent distress Head: normocephalic, Atraumatic Eyes: normal inspection, EOMI, PERRL Neck: supple, Trachea midline Respiratory/Chest: Normal breath sounds, CTA Cardiovascular: S1, S2, No murmur Abdomen/GI:Soft, Non tender, Bowel sounds present Extremities/Musculoskelatal:normal inspection, Trace edema Neurologic/Psych:AAOX3, grossly no focal neurological deficits Skin: normal color, warm, Surgical site on back in bandage, +Drain Lab data as noted below. ASSESSMENT & PLAN: S/P LUMBAR DECOMPRESSION / FUSION POD # 2 Back pain controlled PT/OT Surgery following Pain control Continue Bowel regimen ANEMIA: Postoperative 2 units PRBC transfusion today Monitor Hb:9.3 today HYPERTENSION Stable Continue lisinopril, HCTZ DM II Diet-controlled. Blood sugars run high due likely secondary to surgery and dexamethasone. ISS, diabetic diet Alcohol Abuse Disorder Consumes 8 alcoholic beverages a day. Monitor for alcohol withdrawal. Alcohol withdrawal protocol. Continue gabapentin 600 mg TID her home dose Lorazepam PRN Continue Thiamine, folate, MVI. Tobacco Use Nicotine patch DVT Px: Per Orthopedics team Vital Signs: Date Time Temp Pulse Resp B/P Pulse Ox O2 Delivery O2 Flow Rate FiO2 01/10/17 15:50 37.1 92 18 125/76 97 Room Air 01/10/17 13:11 36.5 89 12 122/72 100 Room Air 01/10/17 11:15 36.9 93 18 143/76 98 Room Air 01/10/17 07:15 Room Air 01/10/17 06:00 36.9 75 18 121/74 96 Room Air 01/10/17 03:30 36.6 74 16 104/62 96 Room Air 01/10/17 00:25 Room Air 01/09/17 22:55 36.9 71 18 111/63 96 Room Air 01/09/17 16:20 Room Air Lab Results: Results Past 24 Hours Test 01/09/17 17:21 01/09/17 20:43 01/10/17 05:37 01/10/17 05:53 Range/Units Bedside Glucose 196 236 133 70-99 mg/dl Hemoglobin 9.3 14.0-18.0 g/dL Hematocrit 25.9 42-52 % Sodium Level 140 136-145 mmol/L Potassium Level 3.8 3.5-5.1 mmol/L Chloride Level 104 98-107 mmol/L Carbon Dioxide Level 31 21-32 mmol/L Anion Gap 5.0 3-11 mmol/L Blood Urea Nitrogen 14 7-18 mg/dl Creatinine 0.88 0.60-1.40 mg/dl Est Creatinine Clear Calc Drug Dose 101.5 ml/min Estimated GFR () 106.7 Estimated GFR (Non- 92.1 BUN/Creatinine Ratio 15.7 10-20 Random Glucose 119 70-99 mg/dl Calcium Level 8.8 8.5-10.1 mg/dl Test 01/10/17 12:07 Range/Units Bedside Glucose 115 70-99 mg/dl
[2017-01-10] MEDS: CYCLOBENZAPRINE HCL 10 MG TAB PO PRN (16:28)
[2017-01-10] MEDS: DOCUSATE SODIUM/SENNA 50/8.6MG TAB PO SCH (21:00)
[2017-01-10 23:11] VITALS: BP 114/61; PULSE 103; TEMP 36.9; O2SAT 95
[2017-01-11] MEDS: OXYCODONE HCL IR 5 MG TAB (IMMEDIATE RELEASE) PO PRN ×3 (01:19→14:05)
[2017-01-11] MEDS: CYCLOBENZAPRINE HCL 10 MG TAB PO PRN ×2 (01:19→09:54)
[2017-01-11 03:40] VITALS: BP 93/58; PULSE 77; TEMP 36.8; O2SAT 94
[2017-01-11] MEDS: POLYETHYLENE (MIRALAX) 17 GM PACK PO SCH ×2 (04:56→14:01)
[2017-01-11 05:48] LABS: HEMATOCRIT 28.9 % (42-52)
[2017-01-11 06:50] VITALS: BP 106/70; PULSE 85; TEMP 36.9; O2SAT 96
--- NOTE | 2017-01-11 08:35 | DISCHARGE SUMMARY ---
DATE OF DISCHARGE: 01/11/2017. PRINCIPAL DIAGNOSIS: Lumbar spinal stenosis. HOSPITAL COURSE FOLLOWS: On 01/08/2017 the patient underwent lumbar decompression and fusion, tolerated this well and taken to the orthopedic floor postoperatively. Postop day #1, he was up and ambulatory, progressed to postop day #2. On postop day #3 pain was improved. LONNIE drain decreased appropriately, subsequently discharged home with home health. Discharge orders and instructions can be found on the chart for further review.
[2017-01-11] MEDS: GABAPENTIN 600 MG TAB PO SCH ×2 (09:49→14:02)
[2017-01-11] MEDS: MULTIVITAMIN TAB PO SCH (09:49)
[2017-01-11] MEDS: NICOTINE 21 MG/24 HR TDSY TD SCH (09:49)
[2017-01-11] MEDS: LISINOPRIL/HCTZ 20/12.5MG TAB PO SCH (09:50)
[2017-01-11] MEDS: THIAMINE HCL 100 MG TAB PO SCH (09:50)
[2017-01-11] MEDS: INSULIN ASPART 100 UNITS/ML 3 ML PEN SC SCH ×2 (09:52→14:01)
[2017-01-11] MEDS ORDERED: CIPR250T3 PO (12:26)
[2017-01-11 14:12] VITALS: BP 106/70; PULSE 85; TEMP 36.9; O2SAT 96
--- NOTE | 2017-01-12 20:44 | EDITING REQUIRED CODING QUERY ---
ANEMIA To promote full compliance with coding requirements relating to patient care, physician participation is requested in all cases of junior systems administrator uncertainty. Please assist us with the question(s) below: Coding Question(s): The record reflects the following clinical findings: If these findings are indicative of anemia, please specify the known or suspected type by placing an "X" within the parenthesis (x). If other, please document type. Examples are: ( ) Acute blood loss anemia ( ) Acute Postoperative blood loss anemia ( ) Acute postoperative anemia due to dilutional fluids ( ) Chronic blood loss anemia ( ) Anemia of chronic disease ( ) Aplastic anemia ( ) Anemia due to renal disease ( ) Anemia in neoplastic disease ( ) Iron deficient anemia ( ) Anemia, unspecified or other ( ) Other: (please specify) ( ) Unable to determine Thank you Rosa Reyes
[2017-05-14] MEDS ORDERED: POTASSIUM CL PO (09:13)
== END 2017-01-11 15:17 | DRG 460 ==
LOC: ENRESERVDT → ENRESERVTM → C.ACU 07:07 → C.3E 10:00
PROVIDERS: ADMIT Orthopaedic Surgery Orthopaedic Surgery of the Spine; ATTEND Orthopaedic Surgery Orthopaedic Surgery of the Spine
PROC: 3E0V0GB Introduction of Recombinant Bone Morphogenetic Protein into Bones, Open Approach (ICD-10-PCS; principal; 2017-01-08 09:15)
PROC: 0ST40ZZ Resection of Lumbosacral Disc, Open Approach (ICD-10-PCS; principal; 2017-01-08 09:15)
PROC: 0SG30A1 (ICD-10-PCS; principal; 2017-01-08 09:15)
DX: M48.07 Spinal stenosis, lumbosacral region (principal); M43.17 Spondylolisthesis, lumbosacral region; I10 Essential (primary) hypertension; E11.9 Type 2 diabetes mellitus without complications; F10.10 Alcohol abuse, uncomplicated; F17.210 Nicotine dependence, cigarettes, uncomplicated; D64.9 Anemia, unspecified; Z79.899 Other long term (current) drug therapy; Z85.51 Personal history of malignant neoplasm of bladder; Z90.6 Acquired absence of other parts of urinary tract; Z88.0 Allergy status to penicillin; Z88.5 Allergy status to narcotic agent; Z88.3 Allergy status to other anti-infective agents

== ENCOUNTER 2017-06-25 06:40 | Inpatient (IN) | payer OTHER ==
[2017-05-14 09:16] VITALS: BMI 32.0
[2017-05-14 09:38] VITALS: BMI 32.0
--- NOTE | 2017-05-24 18:27 | History and Physical ---
History & Physical Date May 24, 2017. Chief Complaint RIGHT HIP PAIN History of Present Illness The patient is a 61 year old male with complaints of right hip and groin pain for years. He can barely walk, already had lumbar surgery and still limping constantly. Pt is ready for MADHURI. Past Medical/Surgical History Medical Problems: (1) Diabetes mellitus type 2, controlled (2) History of bladder cancer (3) Hypertension (4) Lumbar stenosis with neurogenic claudication Surgical Problems: (1) History of total cystectomy (2) Status post ileal conduit Additional History Hepatic Disease: No Endocrine Disorder: No Kidney Disease: No Hypertension: Yes Heart Disease: No Bleeding Tendencies: No Infectious Diseases: No Allergies Coded Allergies: Penicillins (Verified Allergy, Mild, UNKNOWN, 05/14/17) Tramadol (Verified Allergy, Mild, LIP SWELLING, 05/14/17) Vancomycin (Verified Allergy, Mild, LIP SWELLING, 05/14/17) Home Medications Scheduled Ascorbic Acid (Vitamin C), 1 TAB PO QPM Folic Acid (Folic Acid), 1 TAB PO QAM Gabapentin (Neurontin), 600 MG PO TID L-Methylfolate W/ Algae-Vitami (Metanx), 1 CAP PO BID Lisinopril/Hctz (Zestoretic 20MG/12.5MG), 2 TAB PO QAM Multivitamin (Multivitamin), 1 TAB PO QPM Scheduled PRN Furosemide (Lasix), 20 MG PO DAILY PRN for SWELLING Hydrocodone/Acetaminophen 10MG/325MG ([place] 10MG/325MG), 1 TABS PO Q12 PRN for Pain [Potassium Cl], 1 TAB PO BID PRN for RN Physical Examination Skin: warm/dry, no rash Eyes: normal inspection, EOMI, sclerae normal ENT: normal ENT inspection, pharynx normal Head: normocephalic, atraumatic Neck: supple, no adenopathy, trachea midline Respiratory/Chest: lungs clear, normal breath sounds, no respiratory distress Cardiovascular: regular rate, rhythm, no edema, no murmur Abdomen / GI: normal bowel sounds, non tender Back: normal inspection Extremities: normal inspection, normal range of motion, + pertinent finding ( terrible rom and pain with rom right hip) Neurologic/Psych: no motor/sensory deficits, alert, normal reflexes, oriented x 3 Diagnosis DJD RIGHT HIP Plan of Treatment ADMIT TO CA FRANCES. PLAN IS FOR RIGHT MADHURI, PT WILL BE HOME PT AND ON XARELTO FOR DVT PROPHYLAXIS SECONDARY TO HX OF BLADDER CA.
--- NOTE | 2017-06-24 11:46 | History and Physical ---
History & Physical Date Jun 24, 2017. Chief Complaint right hip pain History of Present Illness The patient is a 61 year old male with complaints of right and left hip pain for years. Hes tried nsaids and now on chronic narcotics for the pain. He uses a cane daily and now ready for staged hip replaceements, right hip will be first. Past Medical/Surgical History Medical Problems: (1) Diabetes mellitus type 2, controlled (2) History of bladder cancer (3) Hypertension (4) Lumbar stenosis with neurogenic claudication Surgical Problems: (1) History of total cystectomy (2) Status post ileal conduit Additional History Hepatic Disease: No Endocrine Disorder: No Kidney Disease: No Hypertension: Yes Heart Disease: No Bleeding Tendencies: No Infectious Diseases: No Allergies Coded Allergies: Penicillins (Verified Allergy, Mild, UNKNOWN, 05/14/17) Tramadol (Verified Allergy, Mild, LIP SWELLING, 05/14/17) Vancomycin (Verified Allergy, Mild, LIP SWELLING, 05/14/17) Home Medications Scheduled Ascorbic Acid (Vitamin C), 1 TAB PO QPM Folic Acid (Folic Acid), 1 TAB PO QAM Gabapentin (Neurontin), 600 MG PO TID L-Methylfolate W/ Algae-Vitami (Metanx), 1 CAP PO BID Lisinopril/Hctz (Zestoretic 20MG/12.5MG), 2 TAB PO QAM Multivitamin (Multivitamin), 1 TAB PO QPM Scheduled PRN Furosemide (Lasix), 20 MG PO DAILY PRN for SWELLING Hydrocodone/Acetaminophen 10MG/325MG ([place] 10MG/325MG), 1 TABS PO Q12 PRN for Pain [Potassium Cl], 1 TAB PO BID PRN for RN Physical Examination Skin: warm/dry, no rash Eyes: normal inspection, EOMI, sclerae normal ENT: normal ENT inspection, pharynx normal Head: normocephalic, atraumatic Neck: supple, no adenopathy, trachea midline Respiratory/Chest: lungs clear, normal breath sounds, no respiratory distress Cardiovascular: regular rate, rhythm, no edema, no murmur Abdomen / GI: normal bowel sounds, non tender Back: normal inspection Extremities: normal inspection, normal range of motion, + pertinent finding ( pain with rom of bilateral hips) Neurologic/Psych: no motor/sensory deficits, alert, normal reflexes, oriented x 3 Diagnosis DJD RIGHT HIP Plan of Treatment PLAN IS TO ADMIT, UNDERGO RIGHT MADHURI, HOME DISCHARGE AND ON XARELTO FOR DVT PROPHYLAXIS.
[~2017-06-25] VITALS: Ht 175.3 cm; Wt 98.2 kg
[2017-06-25] VITALS (11 sets, daily range): BP systolic 112–175; BP diastolic 57–83; PULSE 49–84; TEMP 36.4–36.9; O2SAT 98–100; Ht 175.3 cm; Wt 98.2 kg
[2017-06-25] MEDS: TRANEXAMIC ACID INJ 1,000 MG in SODIUM CHLORIDE 0.9% 100ML 100 ML IV SCH ×2 (06:30→08:45)
[~2017-06-25 06:40] MED LIST changes: +ACETAMINOPHEN 500 MG TAB PO SCH; -CEFAZOLIN 2000 MG/60 ML D5W IV SCH; +CLINDAMYCIN 600 MG/54 ML D5W 54 ML IV SCH; +CeleBREX 200 MG CAP PO SCH; +DEXAMETHASONE 4 MG TAB PO SCH; +FAMOTIDINE 20 MG TAB PO SCH; +LACTATED RINGER'S 1000ML IV SCH; -LINE600T5 PO; +METOCLOPRAMIDE HCL 10 MG TAB PO SCH; +POTASSIUM CL PO; +ROPIVACAINE 5MG/ML 30 ML 150 MG, BUPIVACAINE/EPINEPHR 0.5% MPF 30 ML, KETOROLAC TROMETH... INFIL SCH; +TRANEXAMIC ACID INJ 1,000 MG in SODIUM CHLORIDE 0.9% 100ML 100 ML IV SCH; -[UNRECOGNIZED DRUG - REMARK] SCH
[2017-06-25] MEDS ORDERED: BUPIVACAINE 0.5 % 5 MG/1 ML PF 10ML VIAL ONE (06:44)
[2017-06-25] MEDS ORDERED: CIPR1TAB11 PO (07:15)
[2017-06-25] MEDS ORDERED: NICO21DI4 TOP (07:15)
[2017-06-25] MEDS ORDERED: oxycodone PO (07:15)
[2017-06-25] MEDS ORDERED: MIDAZOLAM HCL 1 MG/ML 2ML VIAL ONE ×2 (07:41)
[2017-06-25] MEDS ORDERED: FENTANYL CITRATE INJ 50 MCG/1 ML 2 ML VIAL ONE ×2 (07:42→08:59)
[2017-06-25 07:44] LABS: PROTHROMBIN TIME (PATIENT) 10.7 SECONDS (9.0-12.0)
[2017-06-25] MEDS ORDERED: LIDOCAINE HCL 2% 2 ML VIAL (20MG/ML) ONE (07:44)
[2017-06-25] MEDS ORDERED: ONDANSETRON INJ 2 MG/ML 2 ML VIAL ONE (07:44)
[2017-06-25] MEDS ORDERED: PROPOFOL IV EMULSION 10 MG/ML 20 ML VIAL IV ONE (07:44)
[2017-06-25 08:11] LABS: HEMATOCRIT 35.9 % (42-52); MEAN CELL VOLUME 98.9 fL (80-100); MEAN CORPUSCULAR HEMOGLOBIN 34.4 pg (25-34); MEAN CORPUSCULAR HGB CONC 34.8 g/dl (32-36); MEAN PLATELET VOLUME 10.8 fL (7.4-10.4); PLATELET COUNT 98 K/uL (130-400); RED BLOOD COUNT 3.63 M/uL (4.7-6.1); WHITE BLOOD COUNT 4.25 K/uL (4.8-10.8)
[2017-06-25] MEDS ORDERED: LABETALOL HCL IV 5 MG/ML 20ML IV PRN (08:45)
[2017-06-25] MEDS ORDERED: ATROPINE SULFATE 0.1 MG/ML 5ML SYR IV PRN (08:45)
[2017-06-25] MEDS ORDERED: ONDANSETRON INJ 2 MG/ML 2 ML VIAL IV PRN ×2 (08:45→11:00)
[2017-06-25] MEDS ORDERED: ORTHO JOINT ANESTHETIC ONE (08:55)
[2017-06-25] MEDS ORDERED: BACITRACIN 50000 UNIT VIAL ONE (08:55)
[2017-06-25] MEDS ORDERED: POVIDONE-IODINE OP SOLN 30 ML BTL ONE (09:29)
[2017-06-25] MEDS ORDERED: WATER, STERILE FOR INJ 10 ML VIAL ONE (09:42)
[2017-06-25] MEDS ORDERED: HYDROmorphone INJ 2 MG/ML SYR/VIAL ONE (09:42)
[2017-06-25] MEDS ORDERED: DEXAMETHASONE SOD INJ 4 MG/ML VIAL ONE (09:44)
[2017-06-25] MEDS ORDERED: SODIUM CHLORIDE 0.9% INJ 10 ML VIAL ONE (09:58)
[2017-06-25] MEDS ORDERED: EpHEDrine SULFATE INJ 50 MG/ML AMP ONE (09:58)
[2017-06-25] MEDS: HYDROmorphone INJ 2 MG/ML SYR/VIAL IV PRN ×7 (10:03→11:57)
[2017-06-25] MEDS ORDERED: ROCURONIUM BROMIDE 10 MG/ML 5 ML VIAL IV ONE (10:17)
[2017-06-25] MEDS ORDERED: ALBUTEROL HFA INHALER 8.5 GM INH ONE (10:51)
--- NOTE | 2017-06-25 10:56 | [facility] Operative Report ---
Operative Report Operative Date Jun 25, 2017. Pre-Operative Diagnosis Right hip degenerative joint disease Post-Operative Diagnosis Right hip degenerative joint disease Procedure(s) Performed Right total hip arthroplasty Surgeon Dr. Guzman Front Desk Worker Surgeon(s) Jimmie Murray PA-C and Ozzie Cordova DO Estimated Blood Loss 50 mL Findings As above Specimens A: Right femoral head Complication(s) None Disposition Recovery Room / PACU Description of Procedure IMPLANTS USED: Jairon size 56 mm PSL NIX-coated acetabular cup, one acetabular screw, a an Accolade 2 size #4 stem with a 127 neck, 36 mm X3 elevated liner and a 36 mm +0 ceramic head. INDICATIONS: pleasant male who has unfortunately failed all forms of conservative measures. Therefore, they have has decided to undergo elective surgical intervention. All risks and benefits of the surgery were discussed with the patient and the family in entirety. PROCEDURE: The patient was brought to the operating room and properly identified by myself, anesthesia, and staff. Patient was given a general anesthetic and placed on the operating table with the right hip up. The hip was then prepped and draped in the standard orthopedic fashion. We made a standard posterolateral approach over the greater trochanteric area. We then dissected down to subcutaneous tissue until the fascia was identified. We incised the fascia in line with the skin incision. We then split the gluteus em muscles with finger dissection. We then put the Charnley retractor in place. We placed the retractor underneath the gluteus medius to expose the piriformis. The piriformis was then tagged with a tag suture and released from the insertion from the greater trochanteric area with the use of electrocautery. We then performed a T capsulotomy and the femoral head and neck were atraumatically dislocated. We then performed femoral neck osteotomy at the pre-template site. We removed the femoral head and neck without difficulty. We then placed the retractor around the acetabulum. We then began to ream the acetabulum to the appropriate size. We then impacted the cup into place and had a very good fixation within the pelvis. We then put the liner in place as well. Then using multiple size approaches from the Accolade 2 system a size #4 fit very nicely in the proximal femur. I then put trial components in place. WE had very good range of motion, excellent stability, and excellent leg length equality. We removed the trial components and irrigated the wound. We then impacted the components in place and irrigated the wound once more. We then closed the capsule and fascia with a 0 Vicryl suture, the deep dermis with 2-0 Vicryl suture, and finally the skin with a running 3-0 Vicryl subcuticular stitch. A sterile dressing was applied. The patient was taken to the recovery room in stable condition. Due to the complex nature of the procedure, the entire surgery was performed with the operational assistance of Jimmie KAUR. The support assistant was under direct supervision, was involved in the actual performance of all aspects of the surgical procedure including hemostasis, tissue retraction and incision, instrument management, patient positioning, and wound closure. I attest to the content of the Intraoperative Record and any orders documented therein. Any exceptions are noted below.
[2017-06-25] MEDS ORDERED: GLYCOPYRROLATE INJ 0.2 MG/ML VIAL ONE (10:59)
[2017-06-25] MEDS ORDERED: NEOSTIGMINE METHYLSULFATE 5 MG/5 ML SYR ONE (10:59)
[2017-06-25] MEDS ORDERED: ALUMINUM/MAGNESIUM/SIMETH (MAALOX MAX) 30 ML UDC PO PRN (11:00)
[2017-06-25] MEDS ORDERED: ZOLPIDEM TARTRATE 5 MG TAB PO PRN (11:00)
[2017-06-25] MEDS ORDERED: BISACODYL 10 MG SUPP PR PRN (11:00)
[2017-06-25] MEDS ORDERED: MAGNESIUM HYDROXIDE SUSP 30 ML UDC PO PRN (11:00)
[2017-06-25] MEDS ORDERED: POTASSIUM CHLORIDE 10 MEQ TABCR PO PRN (12:00)
[2017-06-25] MEDS ORDERED: FUROSEMIDE 20 MG TAB PO PRN (12:00)
--- NOTE | 2017-06-25 12:03 | Anesthesiology Progress Note ---
Anesthesia Post Op Note Date & Time Jun 25, 2017 at 12:03 Vital Signs Vital Signs Past 12 Hours Date Time Temp Pulse Resp B/P (MAP) Pulse Ox O2 Delivery O2 Flow Rate FiO2 06/25/17 11:23 36.3 80 12 127/72 97 Nasal Cannula 2 06/25/17 07:16 36.6 84 18 113/73 98 Room Air Notes Mental Status: alert / awake / arousable, participated in evaluation Pt Amnestic to Procedure: Yes Nausea / Vomiting: adequately controlled Pain: adequately controlled Airway Patency, RR, SpO2: stable & adequate BP & HR: stable & adequate Hydration State: stable & adequate Anesthetic Complications: no major complications apparent
[2017-06-25] MEDS ORDERED: HYDROmorphone INJ 2 MG/ML SYR/VIAL IV PRN (12:15)
[2017-06-25] MEDS: ACETAMINOPHEN 500 MG TAB PO SCH ×2 (13:59→21:45)
[2017-06-25] MEDS: GABAPENTIN 600 MG TAB PO SCH ×2 (14:00→21:03)
[2017-06-25] MEDS: SODIUM CHLORIDE 0.9% 1000ML 1,000 ML IV SCH ×2 (14:00→21:04)
[2017-06-25] MEDS ORDERED: INFLUENZA VIRUS QUAD VACCINE 0.5 ML SYR IM. ONE (14:45)
[2017-06-25] MEDS ORDERED: INFLUENZA ADMINISTRATION CHARGE ONE (14:45)
[2017-06-25] MEDS ORDERED: RIVAROXABAN 10 MG TAB PO SCH (16:00)
[2017-06-25] MEDS ORDERED: TRANEXAMIC ACID INJ 1,000 MG in SODIUM CHLORIDE 0.9% 100ML 100 ML IV ONE (17:00)
[2017-06-25] MEDS: OXYCODONE HCL IR 5 MG TAB (IMMEDIATE RELEASE) PO PRN ×2 (17:42→21:04)
[2017-06-25] MEDS ORDERED: CEFAZOLIN IV 2,000 MG in SYRINGE 0 ML IV SCH (18:00)
[2017-06-25] MEDS: DOCUSATE SODIUM 100 MG CAP PO SCH (21:06)
[2017-06-26 03:06] VITALS: BP 120/66; PULSE 71; TEMP 36.4; O2SAT 98
[2017-06-26] MEDS: OXYCODONE HCL IR 5 MG TAB (IMMEDIATE RELEASE) PO PRN ×2 (04:41→08:55)
[2017-06-26] MEDS: ACETAMINOPHEN 500 MG TAB PO SCH (06:17)
[2017-06-26] MEDS: SODIUM CHLORIDE 0.9% 1000ML 1,000 ML IV SCH (06:17)
[2017-06-26 06:57] VITALS: BP 143/82; PULSE 61; TEMP 36.5; O2SAT 99
--- NOTE | 2017-06-26 07:27 | Anesthesiology Progress Note ---
Anesthesia Post Op Note Date & Time Jun 26, 2017 at 07:27 Vital Signs Vital Signs Past 12 Hours Date Time Temp Pulse Resp B/P (MAP) Pulse Ox O2 Delivery O2 Flow Rate FiO2 06/26/17 06:57 36.5 61 18 143/82 (102) 99 Room Air 06/26/17 03:06 36.4 71 16 120/66 (84) 98 Room Air 06/25/17 23:52 Room Air 06/25/17 23:18 36.6 49 16 112/67 (82) 99 Room Air 06/25/17 21:04 98 Room Air 06/25/17 20:35 36.9 65 16 169/57 (94) 100 Nasal Cannula 4.0 06/25/17 19:45 36.9 64 16 174/60 (98) 100 Nasal Cannula 4.0 Notes Mental Status: alert / awake / arousable, participated in evaluation Pt Amnestic to Procedure: Yes Nausea / Vomiting: adequately controlled Pain: adequately controlled Airway Patency, RR, SpO2: stable & adequate BP & HR: stable & adequate Hydration State: stable & adequate Anesthetic Complications: no major complications apparent
[2017-06-26] MEDS ORDERED: DEXAMETHASONE INJ 10 MG in SYRINGE 0 ML IV ONE (07:30)
[2017-06-26 07:40] LABS: HEMATOCRIT 29.3 % (42-52); MEAN CELL VOLUME 99.3 fL (80-100); MEAN CORPUSCULAR HEMOGLOBIN 34.2 pg (25-34); MEAN CORPUSCULAR HGB CONC 34.5 g/dl (32-36); RED BLOOD COUNT 2.95 M/uL (4.7-6.1); WHITE BLOOD COUNT 6.65 K/uL (4.8-10.8)
[2017-06-26 08:10] LABS: MEAN PLATELET VOLUME 10.8 fL (7.4-10.4); PLATELET COUNT 89 K/uL (130-400)
[2017-06-26 08:13] LABS: COMPLETE YES; IG% 0.2 %; LYMPH % 8.3 %; LYMPH ABS # 0.55 K/uL (1.2-3.4); MONO % 6.2 %; NEUT % 85.3 %; TOXIC GRANULATION 1+; VACUOLIZATION 1+
--- NOTE | 2017-06-26 08:41 | DISCHARGE SUMMARY ---
DISCHARGE DIAGNOSIS: Degenerative joint disease, right hip. SECONDARY DIAGNOSIS: None. CONSULTS: None. COMPLICATIONS: None. PROCEDURE: The patient underwent a total hip arthroplasty with Dr. Guzman on 06/25/2017. BRIEF HISTORY: Please see previously dictated history and physical. HOSPITAL SUMMARY: The patient was admitted on the above day for the above procedure. Procedure went without complication. Postop day 1, the patient was feeling well without complaints. He denied chest pain or shortness of breath. Vital signs were stable. He was afebrile. Dressing was clean, dry and intact. He was neurovascularly intact. Calves were soft and nontender. Hip was located. Hemovac drained 50 and 10 mL per shift. The patient began physical therapy per protocol. He was discharged to home later that day in stable condition. For further review please see the chart. Lab, x-ray data and discharge instructions as per chart.
[2017-06-26] MEDS: GABAPENTIN 600 MG TAB PO SCH (08:53)
[2017-06-26] MEDS ORDERED: NICOTINE 14 MG/24 HR TDSY TD SCH (09:00)
[2017-06-26] MEDS ORDERED: LISINOPRIL/HCTZ 20/12.5MG TAB PO SCH (09:00)
[2017-06-26] MEDS ORDERED: FoLIC ACID TAB 400 MCG TAB PO SCH (09:00)
[2017-06-26] MEDS ORDERED: ACET-24 PO (09:08)
[2017-06-26] MEDS ORDERED: RXC5 PO (09:08)
[2017-06-26] MEDS ORDERED: XRL10 PO (09:08)
--- NOTE | 2017-06-26 09:23 | Discharge Instructions ---
Discharge Instructions Date of Service Jun 26, 2017. Admission Reason for Admission: Right Hip Osteoarthritis Discharge Discharge Diagnosis / Problem: Right Hip Djd Discharge Goals Goal(s): Decrease discomfort, Improve function Activity Recommendations Activity Limitations: per Instructions/Follow-up section Weightbearing Status: Right weightbearing (as tolerated) . Instructions / Follow-Up Instructions / Follow-Up ACTIVITY RECOMMENDATIONS: SELF CARE INSTRUCTIONS AFTER TOTAL HIP REPLACEMENT (ALSO SEE DR GUZMAN'S DO' S AND DON'TS LIST) Until the incision and soft tissues around your hip have healed, there is a possibility that the hip prosthesis could dislocate. A. Observe the following precautions to prevent dislocation: 1. Don't bend your hip greater than 90 degrees. 2. Avoid crossing your legs or ankles while standing or lying. 3. Sit with your feet placed 6 inches apart. 4. When sitting, keep your knees below your hips. Sit on a firm surface, avoid deep, soft chairs and couches. Use an elevated toilet seat in the bathroom. 5. Don't bend over at the waist. Use a long handled shoehorn and a sock aid to help you put on your shoes and socks. A board liner operator can help you pickle maker objects that are too high or too low to reach. 6. Keep car riding to a minimum for at least one month after surgery. B. Your balance may be shaky for a while. Use crutches or a walker until directed by your doctor. C. Use hand rails when walking on stairs. D. Wear low heeled shoes with non-slip soles. E. Be sure that your floors are free of things that could trip you - throw rugs , electrical cords, small objects. Avoid wet and waxed floors, especially with crutches and canes. F. Try to walk several times a day with rest periods between. G. Continue with all the exercises taught to you in the hospital. Again, make walking a part of your daily routine. SPECIAL CARE INSTRUCTIONS: VERY IMPORTANT TO READ AND REVIEW A. You may still be at risk for phlebitis and blood clots. 1. Wear surgical stockings (CLAUDIA hose) for 2 weeks after surgery to improve circulation and reduce swelling. 2. Take Xarelto daily or as directed by your doctor. This is your blood thinner. 3. High risk patients may be prescribed a stronger blood thinner if necessary. 4. If you are on Coumadin normally, your family doctor/x ray service technician should monitor your blood work. Expect a phone call the day of or the day after bloodwork is drawn to adjust your dosage. B. You must take antibiotics before having dental work, bladder, bowel and other surgery. Your doctor will provide you with a permanent card to carry describing precautions. C. Call [facility] if you have a fever, redness or swelling around the incision, cloudy drainage from incision, or sudden increase in pain in your hip, not relieved by your regular pain medication. D. Please call the office at if you have any concerns or questions about your operation or recovery. * YOU MAY SHOWER, NO TUB BATHS UNTIL CLEARED BY YOUR DOCTOR. * WEAR CLAUDIA HOSE 20 HOURS PER DAY FOR 2 WEEKS. * YOU SHOULD USE A WALKER OR CRUTCHES FOR 2-4 WEEKS. THIS WILL HELP PREVENT STRAIN ON YOUR HIP MUSCLE AND ALLOW IT TO HEAL PROPERLY. YOU MAY WEAN TO A CANE TOLERATED. * MOST PATIENTS WILL HAVE HOME NURSING FOR THERAPY. IF YOU DECIDE TO DO OUTPATIENT PHYSICAL THERAPY, PLEASE SCHEDULE THIS 3 TIMES PER WEEK. * YOU MAY HAVE A LARGE, BAND-PAWEL LIKE DRESSING (SILVERON). THIS WILL REMAIN ON YOUR INCISION FOR 7 DAYS, THEN CAN BE REMOVED. IF INCISION IS LEAKING THROUGH DRESSING, PLEASE CALL THE OFFICE . FOLLOW UP VISIT: If appointment is not already scheduled: Please call [facility] to make a follow-up appointment for 2 weeks after your surgery at . Current Hospital Diet Patient's current hospital diet: Regular Diet Discharge Diet Recommended Diet: Regular Diet Procedures Procedures Performed: Right total hip arthroplasty Pending Studies Studies pending at discharge: no Medical Emergencies . Who to Call and When: Medical Emergencies: If at any time you feel your situation is an emergency, please call 911 immediately. . Non-Emergent Contact Non-Emergency issues call your: Surgeon Call Non-Emergent contact if: temperature is above 101.5, your pain is not controlled, your pain is worsening, wound has increased drainage, wound has increased redness . "Provider Documentation" section prepared by Jimmie Murray. . VTE Core Measure Inpt VTE Proph given/why not?: Other Anticoagulation [place] Drug Monitoring Program Search Results: patient reviewed within database, see additional documentation Drug Monitoring Findings: Pt receiving [place] Rx from practioner in [facility] on a monthly basis. Latest Rx filled 05/09/17 and good for one month. No Rx's written since that time. Pt will be receiving narcotics from Dr Guzman during the post op period. Pt will have to return to his PCP for further narcotic Rx after the post op period.
[2017-06-26] MEDS: DOCUSATE SODIUM 100 MG CAP PO SCH (10:40)
[2017-06-26 10:53] VITALS: BP 143/82; PULSE 61; TEMP 36.5; O2SAT 99
[2017-06-26 11:17] VITALS: BP 124/74; PULSE 67; TEMP 36.6; O2SAT 96
[2017-06-26] MEDS ORDERED: CIPR1TAB11 PO (12:49)
== END 2017-06-26 13:20 | disposition home health service (06) | DRG 470 ==
LOC: C.ACU 06:40 → C.3E 09:06 → UNDOADMIN 10:52 → C.3E 10:52 → ENRESERV 06-28 12:15
PROVIDERS: ADMIT Orthopaedic Surgery; ATTEND Orthopaedic Surgery
PROC: 0SR903A Replacement of Right Hip Joint with Ceramic Synthetic Substitute, Uncemented, Open Approach (ICD-10-PCS; principal; 2017-06-25 09:15)
DX: M16.11 Unilateral primary osteoarthritis, right hip (principal); E11.9 Type 2 diabetes mellitus without complications; I10 Essential (primary) hypertension; Z79.899 Other long term (current) drug therapy